=== PATIENT | female | born 1990 | race Caucasian/White ===

== ENCOUNTER 2023-11-09 09:14 | Emergency (ER) | payer MEDICAID ==
[~2023-11-09] VITALS: Ht 165.1 cm; Wt 48.0 kg
[2023-11-09 09:17] VITALS: BP 117/59; PULSE 83; RESP 17; TEMP 98.5; O2SAT 94
== END 2023-11-09 11:28 | disposition home or self-care (01) ==
LOC: ER 09:15
DX: J02.9 Acute pharyngitis, unspecified (principal); Z59.00 Homelessness unspecified
CPT/HCPCS: 99281

== ENCOUNTER 2023-12-27 14:42 | Emergency (ER) | payer MEDICAID ==
[~2023-12-27] VITALS: Ht 165.1 cm; Wt 54.1 kg
[~2023-12-27 14:42] MED LIST: CEPH-585 PO
[2023-12-27 14:48] VITALS: BP 116/77; PULSE 90; RESP 16; TEMP 98.6; O2SAT 98
[2023-12-27 15:27] LABS: URINE HCG NEGATIVE (NEG)
[2023-12-27 15:29] LABS: BILIRUBIN,URINE SMALL (Neg); CLARITY,URINE CLOUDY (Clear); COLOR,URINE YELLOW (Yellow); GLUCOSE, URINE NEGATIVE (Neg); KETONES,URINE NEGATIVE (Neg); LEUKOCYTE ESTERASE ,URINE TRACE (Neg); NITRITES, URINE NEGATIVE (Neg); OCCULT BLOOD,URINE LARGE (Neg); PROTEIN,URINE 30 mg/dl (Neg); UROBILINOGEN,URINE 0.2 E.U/dL (0.2-1.0)
[2023-12-27 15:32] LABS: BASOPHILS % (AUTO) 0.6 % (0-1); EOSINOPHILS # (AUTO) 0.1 X10'3 (0-0.9); EOSINOPHILS % (AUTO) 1.2 % (0-6); HEMATOCRIT 38.7 % (35.0-45.0); HEMOGLOBIN 12.8 g/dl (12.0-16.0); LYMPHOCYTES # (AUTO) 1.7 X10'3 (1.1-4.8); LYMPHOCYTES % (AUTO) 21.5 % (21-51); MEAN CORPUSCULAR HEMOGLOBIN 29.1 PG (27.0-31.0); MEAN CORPUSCULAR VOLUME 88.1 FL (78-98); MONOCYTES # (AUTO) 0.8 X10'3 (0-0.9); MONOCYTES % (AUTO) 10.9 % (2-12); NEUTROPHILS # (AUTO) 5.1 X10'3 (1.8-7.7); NEUTROPHILS % (AUTO) 65.8 % (42-75); PLATELET COUNT 289 X10'3 (140-440); RED BLOOD COUNT 4.39 X10'6 (4.20-5.60); RED CELL DISTRIBUTION WIDTH 15.6 % (11.5-14.5); WHITE BLOOD COUNT 7.8 X10'3 (4.5-11.0)
[2023-12-27 15:45] LABS: ALANINE AMINOTRANSFERASE 11 U/L (12-78); ALBUMIN 3.1 G/DL (3.4-5.0); ALBUMIN/GLOBULIN RATIO 0.8 (1.1-1.5); ALKALINE PHOSPHATASE 70 IU/L (46-116); ANION GAP 8 (8-16); ASPARTATE AMINO TRANSFERASE 12 U/L (10-37); BILIRUBIN,TOTAL 0.2 MG/DL (0.1-1.0); BLOOD UREA NITROGEN 13 MG/DL (7-18); CALCIUM 8.7 MG/DL (8.5-10.1); CHLORIDE 104 MMOL/L (99-107); CREATININE 0.62 MG/DL (0.40-0.90); GLUCOSE 95 MG/DL (70-104); LIPASE 42 U/L (16-77); POTASSIUM 3.6 MMOL/L (3.5-5.1); SODIUM 136 MMOL/L (135-145); TOTAL CARBON DIOXIDE 24.1 MMOL/L (24-32); eCRCL 109 ML/MIN; eGFR > 90 ML/MIN
[2023-12-27 16:03] LABS: UA COLLECTION TYPE CLN CATCH MIDSTREAM
[2023-12-27 16:14] LABS: TRICHOMONAS,URINE FEW /HPF (NEGATIVE)
[2023-12-27 16:19] LABS: BACTERIA,URINE 2+ /HPF (Neg)
[2023-12-27 16:20] LABS: SQUAMOUS EPITHELIAL CELL,UR MANY /LPF (FEW)
[2023-12-27 16:22] LABS: WBC,URINE 20-30 /HPF (0-4)
[2023-12-27 16:23] LABS: RBC,URINE 50-100 /HPF (0-2)
== END 2023-12-27 22:19 | disposition left against medical advice (07) ==
LOC: ER 14:42
DX: R10.84 Generalized abdominal pain (principal); R11.0 Nausea; Z53.21 Procedure and treatment not carried out due to patient leaving prior to being seen by health care provider
CPT/HCPCS: 36415; 80053; 81001; 81025; 83690; 85025

== ENCOUNTER 2023-12-28 07:42 | Emergency (ER) | payer MEDICAID, OTHER ==
[~2023-12-28] VITALS: Ht 165.1 cm; Wt 52.3 kg
[2023-12-28 07:54] VITALS: BP 110/83; PULSE 79; RESP 16; TEMP 97.9; O2SAT 97
== END 2023-12-28 11:06 | disposition left against medical advice (07) ==
LOC: ER 07:42
DX: R10.9 Unspecified abdominal pain (principal); R19.7 Diarrhea, unspecified; Z53.21 Procedure and treatment not carried out due to patient leaving prior to being seen by health care provider

== ENCOUNTER 2025-02-06 13:24 | Emergency (ER) | payer OTHER ==
[~2025-02-06] VITALS: Ht 165.1 cm; Wt 63.6 kg
[2025-02-06 13:29] VITALS: TEMP 99.2
--- NOTE | 2025-02-06 14:02 | Physician Documentation ---
History of Present Illness ~ Chief Complaint: Heat Related Stated Complaint: HEAT RELATED Time Seen by MD: 13:47 Primary Medical Doctor: NONE Mode of Arrival: EMS HPI 34-year-old female presenting with multiple issues. The patient was out in the hot weather and started feeling sick and weak. Furthermore the patient somehow sustained a cut over her left eyebrow but can not explain or give me any history as to how it happened. She is extremely anxious and states that she came across some people who she believes wanted to hurt her and she was very scared. She ended up calling the ambulance. She can not provide me with any other history. Patient appears to have some unknown history of mental health disorder versus potential substance abuse. Medication Reconciliation Allergies: Coded Allergies: No Known Allergies (Unverified , 11/10/23) Past Medical History Past Medical History: No Pertinent History Review of Systems All Other Systems at this time: Reviewed and Negative Physical Exam Vital Signs: Temperature: 99.2, Source: Oral, Heart Rate: 116, Respiratory Rate: 16, Pulse Oximetry: 98, Weight: 63.640 Oxygen Flow Rate: 0 Physical Exam I have reviewed the triage vitals. CONST: Well developed and well nourished. In no acute distress HENT: 3 cm laceration over the left eyebrow EYES: Pupils are equal, round and reactive to light. Normal conjunctiva NECK: Normal range of motion. Supple. CARDIO: Normal rate and regular rhythm. No murmurs, rubs, or gallops. S1, S2. PULM/CHEST: No respiratory distress. Lungs clear to auscultation. No wheeze ABD: Soft and nontender. Nondistended. Bowel sounds normal. No guarding. : Exam deferred MSK: No edema. No deformity. NEURO: Alert and oriented to person, place and time. Moving all extremities SKIN: Warm and dry. PSYCH: Severely anxious mood. Procedures Procedures Laceration repair-left eyebrow. A 3 cm laceration was repaired with Dermabond. Wound was irrigated irrigated with normal saline. Patient tolerated the procedure well without any complications. Progress Results/Orders Results/Orders Completed Orders - KAREN CARO MD Normal Saline 1000ml (0.9% Sodium Chlori (02/06/25 14:00) Electrocardiogram (02/06/25 13:57) Cbc/Diff (02/06/25 13:57) Hs Troponin I W Calculations (02/06/25 13:57) CMP (02/06/25 13:57) Ethanol (02/06/25 13:57) Diphenhydramine Inj (Benadryl Inj.) (02/06/25 14:05) Midazolam 5 Mg/Ml 2ml Inj (Versed 5 Mg/M (02/06/25 14:15) Haloperidol Lact. (Haldol) (02/06/25 14:15) Vital Signs 02/06/25 02/06/25 02/06/25 02/06/25 13:29 13:34 14:12 21:27 Temp 99.2 Pulse 116 94 62 Resp 18 16 16 16 B/P (MAP) 118/85 (96) 100/59 Pulse Ox 98 98 98 O2 Flow Rate 0 0 Laboratory Tests Test 02/06/25 15:21 White Blood Count 8.2 Red Blood Count 3.62 L Hemoglobin 10.4 L Hematocrit 31.1 L Mean Corpuscular Volume 86.0 Mean Corpuscular Hemoglobin 28.7 Mean Corpuscular Hemoglobin Concent 33.4 Red Cell Distribution Width 14.7 H Platelet Count 274 Mean Platelet Volume 7.5 Neutrophils (%) (Auto) 74.2 Lymphocytes (%) (Auto) 15.2 L Monocytes (%) (Auto) 10.0 Eosinophils (%) (Auto) 0.2 Basophils (%) (Auto) 0.4 Neutrophils # (Auto) 6.1 Lymphocytes # (Auto) 1.2 Monocytes # (Auto) 0.8 Eosinophils # (Auto) 0.0 Basophils # (Auto) 0.0 CBC Comment Sodium Level 141 Potassium Level 3.5 Chloride Level 111 H Carbon Dioxide Level 23.2 L Anion Gap 7 L Blood Urea Nitrogen 11 Creatinine 0.75 Estimated GFR/1.73 m2 88 BUN/Creatinine Ratio 14.7 Glucose Level 75 Calcium Level 7.5 L Total Bilirubin 0.3 Aspartate Amino Transf (AST/SGOT) 22 Alanine Aminotransferase (ALT/SGPT) 25 Alkaline Phosphatase 76 Troponin I High Sensitivity 6 Total Protein 6.2 L Albumin 3.2 L Globulin 3.0 Albumin/Globulin Ratio 1.1 Chemistry Comments Ethyl Alcohol Level < 10 EKG/XRAY/CT/US/VASC/MRI EKG : Additional Comment EKG as interpreted by me indicating normal sinus rhythm with a rate of 94 beats per minute, normal axis, no ST changes, no ischemia Medical Decision Making Differential Diagnosis 34-year-old female presenting with what appears to be acute psychosis. Patient initially was very tearful stating that some dangerous people were out to get her. She then became extremely agitated without any provocation it started screaming profanity. I suspect the patient is potentially intoxicated with an unknown substance potentially methamphetamines. Patient was medicated for sedation with IM Haldol 10 mg, IV Benadryl 50 mg in IV Versed 5 mg. She then slept comfortably. The laceration on her left forehead was repaired with [place]. Patient still sleeping at this time and not cleared mentally thus she will need to be signed out to the incoming ED physician for final disposition. Addendum I received sign-out on this patient at shift change. Briefly: The patient presented with abnormal behavior and possible psychosis. She was given IM medications for sedation for agitated delirium. Plan: Urine drug screen and re- evaluation. Re-evaluation: The patient slept for several hours during my shift. When I wake her up, she does not appear psychotic or to be responding to internal stimuli. She tells me that she is homeless and tells me a wandering story about getting off a bus, looking for a place for food, and being very tired. At this time, she does not have an acute medical complaints, she does feel thirsty and hungry. She is not appear to have evidence of an acute medical or surgical emergency. I do not feel that waiting for urine drug screen is necessary. She will be discharged with return precautions. Gautam Dangelo MD Departure Time of Disposition: 21:10 Disposition: 01 HOME / SELF CARE / HOMELESS Impression: Primary Impression: Heat exhaustion Additional Impression: Homeless Condition: Improved Discharge Instructions: Heat Illness Referrals: NO PRIMARY CARE PROVIDER (PCP) Education Educated: Patient Educated regarding: diagnosis, need for follow up Signature Scribe Signature: na Attestation: KAREN Armendariz MD Feb 06, 2025 14:02 GAUTAM DANGELO MD Feb 06, 2025 21:10
[2025-02-06] MEDS: normal saline 1000ml 1,000 ML IV ONE (14:06)
--- NOTE | 2025-02-06 14:09 | ELECTROCARDIOGRAPH REPORT ---
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
[2025-02-06] MEDS: MIDAZolam 5mg/ml 2ml vial IV ONE (14:33)
[2025-02-06] MEDS: haloperidol lactate 5mg/ml inj IM ONE (14:47)
[2025-02-06 15:29] LABS: MEAN PLATELET VOLUME 7.5 FL (7.4-10.4); RED CELL DISTRIBUTION WIDTH 14.7 % (11.5-14.5)
[2025-02-06 15:43] LABS: CREATININE 0.75 MG/DL (0.40-0.90); ETHANOL < 10 MG/DL (<10); TOTAL CARBON DIOXIDE 23.2 MMOL/L (24-32); eCRCL 94 ML/MIN; eGFR 88 ML/MIN
[2025-02-06 21:27] VITALS: BP 100/59; PULSE 62; RESP 16; O2SAT 98
== END 2025-02-06 21:35 | disposition home or self-care (01) ==
LOC: ER 13:24
DX: T67.5XXA Heat exhaustion, unspecified, initial encounter (principal); S01.81XA Laceration without foreign body of other part of head, initial encounter; Z59.00 Homelessness unspecified; W45.8XXA Other foreign body or object entering through skin, initial encounter; Y93.89 Activity, other specified; Y92.89 Other specified places as the place of occurrence of the external cause; Y99.8 Other external cause status
CPT/HCPCS: 12013; 36415; 80053; 80320; 84484; 85025; 93005; 96361; 96372; 96374; 96375; 99285; J1200; J1630; J2250; J7030; A6449